=== PATIENT | male | born 1980 | race Two or more races ===

== ENCOUNTER 2020-10-18 21:54 | Emergency (ER) | payer OTHER, MEDICAID ==
[~2020-10-18] VITALS: Ht 175.3 cm; Wt 139.8 kg
[2020-10-18 22:16] VITALS: BP 134/76
--- NOTE | 2020-10-18 23:53 | NUR ---
pt discharged before nursing assessments done
== END 2020-10-18 23:53 | disposition home or self-care (01) ==
LOC: ER 21:55
DX: S60.141A Contusion of right ring finger with damage to nail, initial encounter (principal); W22.8XXA Striking against or struck by other objects, initial encounter; Y93.89 Activity, other specified; Y92.89 Other specified places as the place of occurrence of the external cause; Y99.8 Other external cause status
CPT/HCPCS: 11740; 73140; 99284